=== PATIENT | female | born 1955 | race Caucasian/White ===

== ENCOUNTER 2018-10-28 11:57 | Outpatient (CLI) | payer OTHER ==
[~2018-10-28 11:57] MED LIST: NABUMETONE500 MG PO; PERCOCET 5/3251 TAB PO
== END 2018-10-28 17:00 | disposition home or self-care (01) ==
LOC: MRI 11:57
DX: M25.571 Pain in right ankle and joints of right foot (principal); M25.572 Pain in left ankle and joints of left foot; M54.5 Low back pain
CPT/HCPCS: 72148

== ENCOUNTER 2023-03-27 10:09 | Outpatient (CLI) | payer OTHER ==
[~2023-03-27 10:09] MED LIST changes: +HYMOVIS24 MG/3 ML IU; +METAXALONE800 MG PO
== END 2023-03-27 10:12 | disposition home or self-care (01) ==
LOC: SONOGRAMA 10:09
PROVIDERS: ATTEND Pathology Anatomic Pathology & Clinical Pathology
DX: D34 Benign neoplasm of thyroid gland (principal); E06.3 Autoimmune thyroiditis